=== PATIENT | female | born 1970 | race Caucasian/White ===

== ENCOUNTER 2017-06-08 08:03 | Emergency (ER) | payer MEDICAID ==
[~2017-06-08] VITALS: Ht 152.4 cm; Wt 57.0 kg
[~2017-06-08 08:03] MED LIST: ALBUAER3 INH; ALPR1TAB3 PO; BETH10TA2 PO; CYCL1TAB29 PO; ERGO1CAP30 PO; FLUT50SP EACH NARE; GABA300C5 PO; HYDR-3580 PO; MECL-62 PO; MEDR4PAK PO; SPIRCAP INH; TRIA37.5 PO
[2017-06-08 08:05] VITALS: BP 126/67; PULSE 89; RESP 12; TEMP 98.1; O2SAT 99
--- NOTE | 2017-06-08 08:33 | PD ---
HPI Chief Complaint: Fall Time Seen by Provider: 08:33 Travel History International Travel<30 days: No Contact w/Intl Traveler<30days: No Traveled to known affect area: No History of Present Illness HPI 47-year-old female came to the emergency room with history of trip and fall over her dog yesterday when she landed on her left knee and somehow strained her neck trying to avoid a furniture. Patient says today the pain is worse. She is walking but it hurts to walk. In her neck hurts as well. Last night she took her own Lortab and Flexeril. She has had a cervical fusion and hence she was concerned. She came here to be checked out. Patient did not hit her head and she is not on any blood thinners. [facility] Past Medical History Narrative Medical List of her past medical, surgical, social and family history is reviewed from the nursing Cancer: Yes (CERVICAL) High Cholesterol: Yes ("LOW GOOD CHOLESTEROL") Diminished Hearing: No Hepatitis: Yes (TYPE C) ?: Not Past Surgical History Hysterectomy: Yes Neurologic Surgery: Yes (C-SPINE) Social History Alcohol Use: No (occasional) Tobacco Use: Yes (/2 ) Substance Use: No Allergies-Medications (Allergen,Severity, Reaction): Coded Allergies: Cortisone (Verified Allergy, Severe, PATIENT HAD A REACTION, FELL AND BROKE HER NECK, 06/09/17) Sausage (Verified Allergy, Severe, "the kind on pizza" causes swelling, 06/09/17) Trazodone (Verified Allergy, Severe, THROAT CLOSED, LIPS AND HANDS SWELLED UP, 06/09/17) Tylenol (Verified Allergy, Severe, tylenol in the capsules causes swelling , 06/09/17) Prednisone (Verified Allergy, Unknown, 06/09/17) Sulfa (Verified Adverse Reaction, Mild, stomach upset, 06/09/17) Zithromax (Verified Adverse Reaction, Mild, stomach upset, 06/09/17) Comments List of her allergies reviewed from the nursing. Reported Meds & Prescriptions Reported Meds & Active Scripts Active Flexeril (Cyclobenzaprine HCl) 10 Mg Tab 10 Mg PO TID Bethanechol 10 Mg Tab 10 Mg PO QID Alprazolam 1 Mg Tab 1 Mg PO BID PRN Hydrocodone-Acetaminophen 7.5-325 mg Tab 1 Tab PO Q4H PRN Proair Hfa 8.5 GM Inh (Albuterol Sulfate) 90 Mcg/Act Aer 1 Puff INH Q4H PRN 108 mcg/actuation Gabapentin 300 Mg Cap 300 Mg PO Q6HR Ergocalciferol 50,000 Unit Cap 50,000 Units PO WEEKLY Reported Fluticasone Nasal [place] 50 Mcg/Act Naspr 50 Mcg EACH NARE 50 mcg/spray Narrative Medication List of her home medications reviewed from the nursing note Review of Systems Except as stated in HPI: all other systems reviewed are Neg Physical Exam Narrative GENERAL: Awake, alert, mild distress SKIN: Focused skin assessment warm/dry. Superficial abrasion on her left knee HEAD: Atraumatic. Normocephalic. EYES: Pupils equal and round. No scleral icterus. No injection or drainage. ENT: No nasal bleeding or discharge. Mucous membranes pink and moist. NECK: Trachea midline. No JVD. CARDIOVASCULAR: Regular rate and rhythm. No murmur appreciated. RESPIRATORY: No accessory muscle use. Clear to auscultation. Breath sounds equal bilaterally. GASTROINTESTINAL: Abdomen soft, non-tender, nondistended. Hepatic and splenic margins not palpable. MUSCULOSKELETAL: No obvious deformities. No clubbing. No cyanosis. No edema. The left knee has some prepatellar swelling and tenderness at the abrasion. NEUROLOGICAL: Awake and alert. No obvious cranial nerve deficits. Motor grossly within normal limits. Normal speech. PSYCHIATRIC: Appropriate mood and affect; insight and judgment normal. Data Data Last Documented VS Vital Signs Date Time Temp Pulse Resp B/P Pulse Ox O2 Delivery O2 Flow Rate FiO2 06/08/17 10:47 66 18 125/56 98 06/08/17 08:20 Room Air 06/08/17 08:05 98.1 Orders Knee, Complete (4vws) (06/08/17 ) Spine, Cervical Compl([id number]) (06/08/17 ) Ibuprofen (Motrin) (06/08/17 08:45) MDM Medical Decision Making Medical Screen Exam Complete: Yes Emergency Medical Condition: Yes Medical Record Reviewed: Yes Differential Diagnosis Patellar fracture, effusion, knee contusion, cervical strain, cervical fracture Narrative Course 9:26 AM awaiting for the x-rays to be read. Patient was given Motrin for pain. She will be discharged home if they are negative. Procedures EKG Prior to Arrival: No Diagnosis Primary Impression: Fall Qualified Code: W19.XXXA - Fall, initial encounter Additional Impressions: Knee contusion Qualified Code: S80.02XA - Contusion of left knee, initial encounter Neck strain Qualified Code: S16.1XXA - Neck strain, initial encounter Referrals: Primary Care Physician Departure Forms: Tests/Procedures, Work Release Enter return to work date: Jun 09, 2017 Additional Instructions: Please return to the ER if the condition worsens or any other new concerns. Otherwise follow-up with your primary care in couple days. Apply warm compresses alternating with cold compress on the knee and eventually gravitate worse the one that seems to help most. Take Motrin/Advil/ibuprofen for pain and inflammation. Med/Other Pt SpecificInfo: No Change to Meds Disposition: 01 DISCHARGE HOME Condition: Stable Brandon Perry MD Jun 08, 2017 08:33
[2017-06-08] MEDS ORDERED: IBUPROFEN 600 MG TAB PO ONE (08:45)
--- NOTE | 2017-06-08 09:24 | RADRPT ---
EXAM DATE/TIME: 06/08/2017 08:58 [facility] COMPARISON: No previous studies available for comparison. INDICATIONS : Neck pain, fall. MEDICAL HISTORY : None. SURGICAL HISTORY : Fusion, cervical. ENCOUNTER: Initial ACUITY: 2 days PAIN SCORE: 7/10 LOCATION: Left lateral neck FINDINGS: There is postoperative plate and screw fixation across C5-6 with solid bony fusion. No change from 20 15. Moderate degenerative disc disease in the remainder of the cervical spine. No fracture or spondyl olisthesis and no prevertebral soft tissue swelling. Mild bony foraminal encroachment in the upper ce rvical spine. CONCLUSION: 1. No acute findings. Postoperative fusion at C5-6 as above. Mac Adams MD on June 08, 2017 at 9:19 Board Certified Radiologist. This report was verified electronically.
--- NOTE | 2017-06-08 09:26 | RADRPT ---
EXAM DATE/TIME: 06/08/2017 09:07 [facility] COMPARISON: No previous studies available for comparison. INDICATIONS : Left knee pain, fall. MEDICAL HISTORY : None. SURGICAL HISTORY : None. ENCOUNTER: Initial ACUITY: 2 days PAIN SCORE: 8/10 LOCATION: Left anterior knee FINDINGS: Four view examination of the left knee demonstrates no evidence of fracture or dislocation. Bony min eralization is normal. The articular surfaces are intact. The suprapatellar soft tissues have a nor mal configuration. CONCLUSION: 1. No acute findings. Early changes of osteoarthritis. Mac Adams MD on June 08, 2017 at 9:22 Board Certified Radiologist. This report was verified electronically.
[2017-06-08 10:47] VITALS: BP 125/56
[2017-06-14] MEDS ORDERED: TIZA4CAP3 PO (10:22)
[2017-06-14] MEDS ORDERED: GABA300C5 PO (10:25)
== END 2017-06-08 10:30 | disposition home or self-care (01) ==
LOC: NEPC 08:03
DX: S80.02XA Contusion of left knee, initial encounter (principal); S16.1XXA Strain of muscle, fascia and tendon at neck level, initial encounter; E78.00 Pure hypercholesterolemia, unspecified; B19.20 Unspecified viral hepatitis C without hepatic coma; F17.200 Nicotine dependence, unspecified, uncomplicated; Z79.899 Other long term (current) drug therapy; Z88.5 Allergy status to narcotic agent; Z88.6 Allergy status to analgesic agent; W01.0XXA Fall on same level from slipping, tripping and stumbling without subsequent striking against object, initial encounter
CPT/HCPCS: 72050; 73564; 99284

== ENCOUNTER 2018-03-08 14:36 | Inpatient (IN) | payer MEDICAID ==
[~2018-03-08] VITALS: Ht 152.4 cm; Wt 65.4 kg
[~2018-03-08 14:36] MED LIST changes: +AUGM875T3 PO; -CYCL1TAB29 PO; -ERGO1CAP30 PO; +FLUT1SPR5 EACH NARE; -MECL-62 PO; -MEDR4PAK PO; +META1TAB17 PO; +NICO21DI2 T-DERMAL; -SPIRCAP INH; -TRIA37.5 PO; +VITA500012 PO; +WALKER WHEELS/F1 MIS
[2018-03-08 14:39] VITALS: BP 120/55; PULSE 76; RESP 14; TEMP 97.9; O2SAT 97
--- NOTE | 2018-03-08 14:59 | PD ---
HPI Chief Complaint: Injury Time Seen by Provider: 14:48 Travel History International Travel<30 days: No Contact w/Intl Traveler<30days: No Traveled to known affect area: No History of Present Illness HPI 47-year-old female presents to the emergency department for evaluation of right leg injury that occurred last night. She states she slipped and fell last night and then also had another slip and fall this morning. She states that her right leg went behind her, causing pain to her right lower leg. Patient states she did hit her head, but denies LOC. No vomiting. No altered mental status. She is not on anticoagulants and has no bleeding disorders. Patient states the pain and swelling has worsened. Current pain is 8/10, aching and throbbing without radiation. She states she took 1 of her prescribed Lortab this morning for the pain. Exacerbating factor is movement, ambulation. Alleviating factors keeping the leg still. Mild to moderate severity. She does have a small abrasion to the right dorsal foot. She states her tetanus immunization has been within the past 5 years. PFSH Past Medical History Cancer: Yes (CERVICAL) High Cholesterol: Yes ("LOW GOOD CHOLESTEROL") Diminished Hearing: No Hepatitis: Yes (TYPE C) Past Surgical History Hysterectomy: Yes Neurologic Surgery: Yes (C-SPINE) Social History Alcohol Use: Yes Tobacco Use: Yes (/) Substance Use: No Allergies-Medications (Allergen,Severity, Reaction): Coded Allergies: 136 (Verified Allergy, Severe, "the kind on pizza" causes swelling, 03/08/18 ) acetaminophen (Unverified Allergy, Severe, tylenol in the capsules causes swelling, 03/08/18) cortisone (Unverified Allergy, Severe, PATIENT HAD A REACTION, FELL AND BROKE HER NECK, 03/08/18) trazodone (Unverified Allergy, Severe, THROAT CLOSED, LIPS AND HANDS SWELLED UP, 03/08/18) prednisone (Unverified Allergy, Unknown, 03/08/18) Sulfa (Sulfonamide Antibiotics) (Unverified Adverse Reaction, Mild, stomach upset, 03/08/18) azithromycin (Unverified Adverse Reaction, Mild, stomach upset, 03/08/18) Reported Meds & Prescriptions Reported Meds & Active Scripts Active Alprazolam 1 Mg Tab 1 Mg PO BID PRN Please do not fill before 11/02/17 Hydrocodone-Acetaminophen 7.5-325 mg Tab 1 Tab PO Q4H PRN Please do not fill before 11/29/17 Flonase Nasal [place] (Fluticasone Nasal [place]) 50 Mcg/Act [place] 50 Mcg EACH NARE BID Augmentin (Amoxicillin-Clavulanate) 875-125 Mg Tab 1 Tab PO BID Proair Hfa 8.5 GM Inh (Albuterol Sulfate) 90 Mcg/Act Aer 1 Puff INH Q4H PRN 108 mcg/actuation Nicotine Patch (Nicotine) 21 Mg/24 Hr Patch 21 Mg T-DERMAL DAILY Metaxalone 400 Mg Tab 400 Mg PO TID Gabapentin 300 Mg Cap 600 Mg PO Q6HR Ergocalciferol 50,000 Unit Cap 50,000 Units PO WEEKLY Walker with Front Wheels (Device) 1 Mis Mis Ea .ROUTE DIRECTED Bethanechol 10 Mg Tab 10 Mg PO QID Reported Fluticasone Nasal [place] 50 Mcg/Act Naspr 50 Mcg EACH NARE 50 mcg/spray Review of Systems Except as stated in HPI: all other systems reviewed are Neg Physical Exam Narrative GENERAL: Well-nourished, well-developed female patient, ambulatory. Afebrile. SKIN: Focused skin assessment warm/dry. Patient has a small abrasion to the right dorsal foot. HEAD: Normocephalic. Atraumatic. ENT: Mucosa pink and moist. No erythema or exudates. No uvular edema. No uvular , palatal, or tonsillar deviation. Airway patent. Nasal turbinates appear normal without nasal blood, purulent drainage or septal hematoma. Bilateral tympanic membranes clear without erythema or perforation. EYES: No scleral icterus. No injection or drainage. PERRLA. NECK: Supple, trachea midline. No JVD or lymphadenopathy. CARDIOVASCULAR: Regular rate and rhythm without murmurs, gallops, or rubs. Right pedal pulse is 2+. RESPIRATORY: Breath sounds equal bilaterally. No accessory muscle use. Lung sounds are clear to auscultation. GASTROINTESTINAL: Abdomen soft, non-tender, nondistended. MUSCULOSKELETAL: No cyanosis, or edema. Patient has tenderness to palpation over the right lower anterior knee, right tibia/fibula, right ankle, right dorsal foot. BACK: Nontender without obvious deformity. No CVA tenderness. Data Data Last Documented VS Vital Signs Date Time Temp Pulse Resp B/P (MAP) Pulse Ox O2 Delivery O2 Flow Rate FiO2 03/08/18 14:39 97.9 76 14 120/55 (76) 97 Orders Orders Tibia/Fibula (Ap/Lat) (03/08/18 ) Ankle, Complete (Weu7esv) (03/08/18 ) Foot, Complete (Kcj6vor) (03/08/18 ) Complete Blood Count With Diff (03/08/18 17:01) Iv Access Insert/Monitor (03/08/18 17:01) Basic Metabolic Panel (Bmp) (03/08/18 17:01) Act Partial Throm Time (Ptt) (03/08/18 17:01) Prothrombin Time / Inr (Pt) (03/08/18 17:01) Chest, Single Ap (03/08/18 ) [employer] Request For Service (03/08/18 17:01) Acetamin-Hydrocod 325-7.5 Mg (Lydia 7.5 (03/08/18 17:15) Splint Or Brace Apply/Monitor (03/08/18 17:04) Admit Order (Ed Use Only) (03/08/18 18:04) Labs Laboratory Tests Test 03/08/18 17:30 [facility] Medical Decision Making Medical Screen Exam Complete: Yes Emergency Medical Condition: Yes Medical Record Reviewed: Yes Interpretation(s) x-ray of the right foot - CONCLUSION: 1. Fracture of the medial malleolus. Please refer to ankle x-ray report for further description. 2. Subtle lucency and asymmetric appearance to the fifth digit proximal phalanx and the proximal metaphysis. I feel is unlikely to represent a fracture given the appearance but suggest correlating for pain at this site. x-ray right ankle - CONCLUSION: 1. There are minimally displaced fractures of the medial and posterior malleolus of the distal tibia. 2. Medial lateral ankle soft tissue swelling. x-ray of the right tibia/fibula - CONCLUSION: Mildly comminuted and displaced spiral fracture of the proximal fibula with minimally displaced fracture of the medial malleolus. This is a Maisonneuve type fracture without any widening of the ankle mortise appreciated. This suggests injury to the interosseous membrane as well. Differential Diagnosis Fracture versus sprain versus contusion versus dislocation Narrative Course 47-year-old female presents to the emergency department for evaluation of right lower leg pain after a slip and fall. She did hit her head. According to [place] CT head rules, imaging is not indicated at this time. X-ray of the right tibia/fibula, ankle, foot are ordered and pending. X-ray of the right tibia/fibula shows mildly comminuted and displaced spiral fracture of the proximal fibula with minimally displaced fracture of the medial malleolus. This is a Maisonneuve type fracture without any widening of the ankle mortise appreciated. This suggests injury to the interosseous membrane as well.. X-ray of the right ankle shows there are minimally displaced fractures of the medial and posterior malleolus of the distal tibia; Medial lateral ankle soft tissue swelling. X-ray of the right foot shows Fracture of the medial malleolus. Please refer to ankle x-ray report for further description; Subtle lucency and asymmetric appearance to the fifth digit proximal phalanx and the proximal metaphysis. I feel is unlikely to represent a fracture given the appearance but suggest correlating for pain at this site. On exam patient has no tenderness to palpation over this area. 1607 - Orthopedic surgeon, Dr. Love, is paged for consultation. I spoke with Dr. Kurtz, who recommends admission to medicine, consult Dr. Aguilar for surgery tomorrow. Patient is to be n.p.o. after midnight. He would like a cooling unit to be done with the splint. I discussed this with the patient, who initially declined admission. However, after she was able to reschedule some appointments, she agrees to be admitted. Chest x-ray, CBC, BMP, PTT, PT/INR ordered and pending. Medicine is paged for admission. Dr. Lane accepted admission. Diagnosis Primary Impression: Fracture of right proximal fibula Qualified Codes: S82.831A - Other fracture of upper and lower end of right fibula, initial encounter for closed fracture Additional Impression: Right malleolar fracture Qualified Codes: S82.891A - Other fracture of right lower leg, initial encounter for closed fracture Admitting Information Admitting Physician Requests: Gia Henry March 08, 2018 14:59
--- NOTE | 2018-03-08 15:49 | RADRPT ---
EXAM DATE/TIME: 03/08/2018 15:28 [facility] COMPARISON: TIBIA/FIBULA RIGHT (AP/LAT), March 08, 2018, 15:32. ANKLE RIGHT COMPLETE ([id number]), March 08, 2018, 15:3 0. INDICATIONS : Tripped and fell last night. Pain in ankle region radiating up leg. MEDICAL HISTORY : None. SURGICAL HISTORY : None. ENCOUNTER: Initial ACUITY: 1 day PAIN SCORE: 9/10 LOCATION: Right Foot FINDINGS: 3 views of the right foot demonstrate a fracture through the medial malleolus which will be further d escribed on the other examinations. The bones of the hindfoot and midfoot appear intact. The Lisfranc joint appears intact. There is a subtle lucency at the fifth digit proximal phalanx in the proximal metaphysis. However, definite fracture is not appreciated. There is soft tissue swelling around the a nkle. No radiopaque foreign body is identified. CONCLUSION: 1. Fracture of the medial malleolus. Please refer to ankle x-ray report for further description. 2. Subtle lucency and asymmetric appearance to the fifth digit proximal phalanx and the proximal meta physis. I feel is unlikely to represent a fracture given the appearance but suggest correlating for p ain at this site. Demian Almaguer MD on March 08, 2018 at 15:43 Board Certified Radiologist. This report was verified electronically.
--- NOTE | 2018-03-08 15:53 | RADRPT ---
EXAM DATE/TIME: 03/08/2018 15:30 [facility] COMPARISON: TIBIA/FIBULA RIGHT (AP/LAT), March 08, 2018, 15:32. INDICATIONS : Tripped and fell last night. Pain in ankle region radiating up leg. MEDICAL HISTORY : None. SURGICAL HISTORY : None. ENCOUNTER: Initial ACUITY: 1 day PAIN SCORE: 9/10 LOCATION: Right Ankle FINDINGS: 3 views of the right ankle demonstrate a minimally displaced fracture of the medial malleolus. Ankle mortise is intact. There is also a fracture through the posterior malleolus. Medial and lateral ankle soft tissue swelling is present. There is no radiopaque foreign body. CONCLUSION: 1. There are minimally displaced fractures of the medial and posterior malleolus of the distal tibia. 2. Medial lateral ankle soft tissue swelling. Demian Almaguer MD on March 08, 2018 at 15:49 Board Certified Radiologist. This report was verified electronically.
--- NOTE | 2018-03-08 15:56 | RADRPT ---
EXAM DATE/TIME: 03/08/2018 15:32 [facility] COMPARISON: No previous studies available for comparison. INDICATIONS : Tripped and fell last night. Pain in ankle region radiating up leg. MEDICAL HISTORY : None. SURGICAL HISTORY : None. ENCOUNTER: Initial ACUITY: 1 day PAIN SCORE: 9/10 LOCATION: Right Tib/Fib FINDINGS: 2 views of the right leg demonstrate a minimally displaced spiral fracture of the proximal fibular me tadiaphysis with displacement of the distal fragment by 3 mm. Fracture is mildly comminuted. There is also a transverse fracture through the medial malleolus which is minimally displaced. The ankle mort ise does not appear widened. There is medial and lateral ankle soft tissue swelling. No radiopaque fo reign body is present. CONCLUSION: Mildly comminuted and displaced spiral fracture of the proximal fibula with minimally displaced fract ure of the medial malleolus. This is a Maisonneuve type fracture without any widening of the ankle mo rtise appreciated. This suggests injury to the interosseous membrane as well. Demian Almaguer MD on March 08, 2018 at 15:50 Board Certified Radiologist. This report was verified electronically.
[2018-03-08] MEDS ORDERED: ACETAMINOPHEN/HYDROcodone 325 MG/7.5 MG TAB PO ONE (17:15)
--- NOTE | 2018-03-08 17:23 | RADRPT ---
EXAM DATE/TIME: 03/08/2018 17:11 [facility] COMPARISON: No previous studies available for comparison. INDICATIONS : Evaluate for pneumonia, pneumothorax, or communicable disease. Pre op for surgery. MEDICAL HISTORY : None. SURGICAL HISTORY : None. ENCOUNTER: Initial ACUITY: 1 day PAIN SCORE: 0/10 LOCATION: Bilateral chest FINDINGS: A single view of the chest demonstrates the lungs to be symmetrically aerated without evidence of mas s, infiltrate or effusion. The cardiomediastinal contours are unremarkable. Osseous structures are intact. CONCLUSION: The lungs are clear. Omkar Lunsford MD on March 08, 2018 at 17:21 Board Certified Radiologist. This report was verified electronically.
[2018-03-08 18:09] LABS: PROTHROMBIN TIME - PATIENT 10.4 SEC (9.8-11.6)
[2018-03-08 18:14] LABS: BASOPHIL % 0.2 % (0.0-2.0); EOSINOPHIL # 0.3 TH/MM3 (0-0.4); EOSINOPHIL % 1.8 % (0.0-4.0); HEMATOCRIT 41.2 % (35.0-46.0); HEMOGLOBIN 14.5 GM/DL (11.6-15.3); LYMPH % 22.7 % (9.0-44.0); LYMPHOCYTE # 3.6 TH/MM3 (1.0-4.8); MEAN CELL VOLUME 91.2 FL (80.0-100.0); MEAN CORPUSCULAR HEMOGLOBIN 32.1 PG (27.0-34.0); MEAN CORPUSCULAR HGB CONC 35.2 % (32.0-36.0); MEAN PLATELET VOLUME 8.5 FL (7.0-11.0); MONO % 6.7 % (0.0-8.0); MONOCYTE # 1.1 TH/MM3 (0-0.9); NEUT % 68.6 % (16.0-70.0); PLATELET COUNT 275 TH/MM3 (150-450); RED BLOOD COUNT 4.52 MIL/MM3 (4.00-5.30); RED CELL DISTRIBUTION WIDTH 12.8 % (11.6-17.2)
[2018-03-08 18:25] LABS: BICARBONATE 26.6 MEQ/L (21.0-32.0); CREATININE 0.88 MG/DL (0.50-1.00)
[2018-03-08] MEDS ORDERED: LACTULOSE SYRUP 20 GM/30 ML CUP PO PRN (18:45)
[2018-03-08] MEDS ORDERED: NALOXONE HCL 0.4 MG/ML AMP IV PUSH PRN (18:45)
[2018-03-08] MEDS ORDERED: SODIUM CHLORIDE 0.9% FLUSH 10 ML FLUSH IV FLUSH PRN (18:45)
[2018-03-08] MEDS ORDERED: SENNOSIDES 8.6 MG TAB PO PRN (18:45)
[2018-03-08] MEDS ORDERED: MAGNESIUM HYDROXIDE SUSP 30 ML CUP PO PRN (18:45)
[2018-03-08] MEDS ORDERED: ONDANSETRON HCL 4 MG/2 ML VIAL IVP PRN (18:45)
[2018-03-08] MEDS ORDERED: BISACODYL 10 MG SUPP RECTAL PRN (18:45)
--- NOTE | 2018-03-08 18:59 | HHI.HP ---
[facility] Suhail Olguin MD Admission Diagnosis Right proximal fibula fracture, right distal tibia fracture Diagnoses: Chief Complaint: Fall, righ leg and hand pain Travel History International Travel<30 Days: No Contact w/Intl Traveler <30 Da: No Traveled to Known Affected Are: No History of Present Illness PAtient states slipped and fell. Review of Systems As per HPI, other systems reviewe by me and negative Past Family Social History Past Medical History 1. Cervical cancer. 2. Hyperlipidemia. 3. Hepatitis C. Past Surgical History 1. Hysterectomy. 2. Surgery of the cervical spine. Reported Medications Reported Meds & Active Scripts Active Alprazolam 1 Mg Tab 1 Mg PO BID PRN Please do not fill before 11/02/17 Hydrocodone-Acetaminophen 7.5-325 mg Tab 1 Tab PO Q4H PRN Please do not fill before 11/29/17 Flonase Nasal [place] (Fluticasone Nasal [place]) 50 Mcg/Act [place] 50 Mcg EACH NARE BID Proair Hfa 8.5 GM Inh (Albuterol Sulfate) 90 Mcg/Act Aer 1 Puff INH Q4H PRN 108 mcg/actuation Nicotine Patch (Nicotine) 21 Mg/24 Hr Patch 21 Mg T-DERMAL DAILY Metaxalone 400 Mg Tab 400 Mg PO TID Gabapentin 300 Mg Cap 600 Mg PO Q6HR Ergocalciferol 50,000 Unit Cap 50,000 Units PO WEEKLY Bethanechol 10 Mg Tab 10 Mg PO QID Reported Fluticasone Nasal [place] 50 Mcg/Act Naspr 50 Mcg EACH NARE 50 mcg/spray Allergies: Coded Allergies: 136 (Verified Allergy, Severe, "the kind on pizza" causes swelling, 03/08/18 ) acetaminophen (Unverified Allergy, Severe, tylenol in the capsules causes swelling, 03/08/18) cortisone (Unverified Allergy, Severe, PATIENT HAD A REACTION, FELL AND BROKE HER NECK, 03/08/18) trazodone (Unverified Allergy, Severe, THROAT CLOSED, LIPS AND HANDS SWELLED UP, 03/08/18) prednisone (Unverified Allergy, Unknown, 03/08/18) Sulfa (Sulfonamide Antibiotics) (Unverified Adverse Reaction, Mild, stomach upset, 03/08/18) azithromycin (Unverified Adverse Reaction, Mild, stomach upset, 03/08/18) Active Ordered Medications Current Medications Medications (Trade) Dose Ordered Sig/Vitor Route Start Time Stop Time Status Last Admin (NS Flush) 2 ml UNSCH PRN IV FLUSH 03/08/18 18:45 (NS Flush) 2 ml BID IV FLUSH 03/08/18 21:00 03/08/18 21:35 (Zofran Inj) 4 mg Q6H PRN IVP 03/08/18 18:45 (Heparin Inj) 5,000 units Q8H SQ 03/08/18 18:45 03/08/18 19:20 (Narcan Inj) 0.4 mg UNSCH PRN IV PUSH 03/08/18 18:45 (Rosita-Colace) 1 tab BID PO 03/08/18 21:00 03/08/18 21:31 (Milk Of Magnesia Liq) 30 ml Q12H PRN PO 03/08/18 18:45 (Senokot) 17.2 mg Q12H PRN PO 03/08/18 18:45 (Dulcolax Supp) 10 mg DAILY PRN RECTAL 03/08/18 18:45 (Lactulose Liq) 30 ml DAILY PRN PO 03/08/18 18:45 (Proair Hfa Inh) 1 puff Q4H PRN INH 03/08/18 19:00 (Xanax) 1 mg BID PRN PO 03/08/18 19:00 03/08/18 22:20 (Urecholine) 10 mg QID PO 03/08/18 21:00 03/08/18 21:31 (Neurontin) 600 mg Q6HR PO 03/09/18 00:00 03/09/18 00:05 (Skelaxin) 400 mg TID PO 03/09/18 09:00 (Habitrol 21 Mg Patch.24 Hr) 21 patch DAILY T-DERMAL 03/09/18 09:00 (Flonase [place] Spr) 50 spray BID EACH NARE 03/08/18 21:00 03/08/18 21:31 (Roxicodone) 5 mg Q4H PRN PO 03/08/18 19:00 (Roxicodone) 10 mg Q4H PRN PO 03/08/18 19:00 03/08/18 22:15 Miscellaneous Information 1 HS T-DERMAL 03/08/18 21:00 Social History Patient smokes half a pack per day. The patient uses alcohol. Denies illicit drug use. Physical Exam Vital Signs Vital Signs Date Time Temp Pulse Resp B/P (MAP) Pulse Ox O2 Delivery O2 Flow Rate FiO2 03/08/18 14:39 97.9 76 14 120/55 (76) 97 Physical Exam GENERAL: This is a well-nourished, well-developed patient, in no apparent distress. SKIN: No rashes, ecchymoses or lesions. Cool and dry. HEAD: Atraumatic. Normocephalic. No temporal or scalp tenderness. EYES: Pupils equal round and reactive. Extraocular motions intact. No scleral icterus. No injection or drainage. ENT: Nose without bleeding, purulent drainage or septal hematoma. Throat without erythema, tonsillar hypertrophy or exudate. Uvula midline. Airway patent. NECK: Trachea midline. No JVD or lymphadenopathy. Supple, nontender, no meningeal signs. CARDIOVASCULAR: Regular rate and rhythm without murmurs, gallops, or rubs. RESPIRATORY: Clear to auscultation. Breath sounds equal bilaterally. No wheezes , rales, or rhonchi. GASTROINTESTINAL: Abdomen soft, non-tender, nondistended. No hepato-splenomegaly , or palpable masses. No guarding. MUSCULOSKELETAL: Right leg on a cast, right wrist on splint. Good capillary refill in both upper and lower extremities. NEUROLOGICAL: Awake and alert. Cranial nerves II through XII intact. Motor and sensory grossly within normal limits. Five out of 5 muscle strength in all muscle groups. Normal speech. Laboratory Laboratory Tests Test 03/08/18 17:30 White Blood Count 16.0 Red Blood Count 4.52 Hemoglobin 14.5 Hematocrit 41.2 Mean Corpuscular Volume 91.2 Mean Corpuscular Hemoglobin 32.1 Mean Corpuscular Hemoglobin Concent 35.2 Red Cell Distribution Width 12.8 Platelet Count 275 Mean Platelet Volume 8.5 Neutrophils (%) (Auto) 68.6 Lymphocytes (%) (Auto) 22.7 Monocytes (%) (Auto) 6.7 Eosinophils (%) (Auto) 1.8 Basophils (%) (Auto) 0.2 Neutrophils # (Auto) 11.0 Lymphocytes # (Auto) 3.6 Monocytes # (Auto) 1.1 Eosinophils # (Auto) 0.3 Basophils # (Auto) 0.0 CBC Comment AUTO DIFF Prothrombin Time 10.4 Prothromb Time International Ratio 1.0 Activated Partial Thromboplast Time 27.2 Blood Urea Nitrogen 11 Creatinine 0.88 Random Glucose 109 Calcium Level 9.0 Sodium Level 138 Potassium Level 4.2 Chloride Level 105 Carbon Dioxide Level 26.6 Anion Gap 6 Estimat Glomerular Filtration Rate 69 Result Diagram: 03/08/18 1730 03/08/18 1730 Imaging Last Impressions Tibia/Fibula X-Ray 03/08/18 0000 Signed Impressions: Service Date/Time: March 15:32 - CONCLUSION: Mildly comminuted and displaced spiral fracture of the proximal fibula with minimally displaced fracture of the medial malleolus. This is a Maisonneuve type fracture without any widening of the ankle mortise appreciated. This suggests injury to the interosseous membrane as well. Demian Almaguer MD Foot X-Ray 03/08/18 0000 Signed Impressions: Service Date/Time: March 15:28 - CONCLUSION: 1. Fracture of the medial malleolus. Please refer to ankle x-ray report for further description. 2. Subtle lucency and asymmetric appearance to the fifth digit proximal phalanx and the proximal metaphysis. I feel is unlikely to represent a fracture given the appearance but suggest correlating for pain at this site. Demian Almaguer MD Chest X-Ray 03/08/18 0000 Signed Impressions: Service Date/Time: March 17:11 - CONCLUSION: The lungs are clear. Omkar Lunsford MD Ankle X-Ray 03/08/18 0000 Signed Impressions: Service Date/Time: March 15:30 - CONCLUSION: 1. There are minimally displaced fractures of the medial and posterior malleolus of the distal tibia. 2. Medial lateral ankle soft tissue swelling. MD Matthew Gayi VTE Risk Assessment Caprini VTE Risk Assessment: Mod/High Risk (score >= 2) Caprini Risk Assessment Model Point Value = 1 Point Value = 2 Point Value = 3 Point Value = 5 Age 41-60 Minor surgery BMI > 25 kg/m2 Swollen legs Varicose veins or History of unexplained or recurrent spontaneous Oral contraceptives or hormone replacement Sepsis (< 1 month) Serious lung disease, including pneumonia (< 1 month) Abnormal pulmonary function Acute myocardial infarction Congestive heart failure (< 1 month) History of inflammatory bowel disease Medical patient at bed rest Age 61-74 Arthroscopic surgery Major open surgery (> 45 min) Laparoscopic surgery (> 45 min) Malignancy Confined to bed (> 72 hours) Immobilizing plaster cast Central venous access Age >= 75 History of VTE Family history of VTE Factor V Leiden Prothrombin [id number] Lupus anticoagulant Anticardiolipin antibodies Elevated serum homocysteine Heparin-induced thrombocytopenia Other congenital or acquired thrombophilia Stroke (< 1 month) Elective arthroplasty Hip, pelvis, or leg fracture Acute spinal cord injury (< 1 month) Prophylaxis Regimen Total Risk Factor Score Risk Level Prophylaxis Regimen 0-1 Low Early ambulation 2 Moderate Order ONE of the following: *Sequential Compression Device (SCD) *Heparin 5000 units SQ BID 3-4 Higher Order ONE of the following medications: *Heparin 5000 units SQ TID *Enoxaparin/Lovenox 40 mg SQ daily (WT < 150 kg, CrCl > 30 mL/min) *Enoxaparin/Lovenox 30 mg SQ daily (WT < 150 kg, CrCl > 10-29 mL/min) *Enoxaparin/Lovenox 30 mg SQ BID (WT < 150 kg, CrCl > 30 mL/min) AND/OR *Sequential Compression Device (SCD) 5 or more Highest Order ONE of the following medications: *Heparin 5000 units SQ TID (Preferred with Epidurals) *Enoxaparin/Lovenox 40 mg SQ daily (WT < 150 kg, CrCl > 30 mL/min) *Enoxaparin/Lovenox 30 mg SQ daily (WT < 150 kg, CrCl > 10-29 mL/min) *Enoxaparin/Lovenox 30 mg SQ BID (WT < 150 kg, CrCl > 30 mL/min) AND *Sequential Compression Device (SCD) Assessment and Plan Problem List: (1) Fracture of right proximal fibula ICD Code: S82.831A - Other fracture of upper and lower end of right fibula, initial encounter for closed fracture Status: Acute (2) Right malleolar fracture ICD Code: S82.891A - Other fracture of right lower leg, initial encounter for closed fracture Status: Acute (3) Hepatitis C ICD Code: B19.20 - Unspecified viral hepatitis C without hepatic coma Status: Chronic Permanent Comment: 01/20/10. In one year, patient's Viral Load has increased X 5. Last Edited By: Megan Soria on Apr 25, 2013 10:51 Assessment and Plan Admit to medical floor NPO at midnight Pain contro with oxycodone. orthopedic surgery consult - Dr Ivan shrestha hparin SQ for DVt prophylaxis Code Status Full Discussed Condition With Ed physician, patient Physician Certification 2 Midnight Certification Type: Admission for Inpatient Services Order for Inpatient Services The services are ordered in accordance with Medicare regulations or non- Medicare payer requirements, as applicable. In the case of services not specified as inpatient-only, they are appropriately provided as inpatient services in accordance with the 2-midnight benchmark. Estimated LOS (days): 2 days is the estimated time the patient will need to remain in the hospital, assuming treatment plan goals are met and no additional complications. Post-Hospital Plan: SNF Problem Qualifiers (1) Fracture of right proximal fibula: Qualified Codes: S82.831A - Other fracture of upper and lower end of right fibula, initial encounter for closed fracture (2) Right malleolar fracture: Qualified Codes: S82.891A - Other fracture of right lower leg, initial encounter for closed fracture Chinedu Peguero MD March 08, 2018 18:59
[2018-03-08] MEDS ORDERED: ALBUTEROL SULFATE 90 MCG/ACT HFA 8 GM INHALER INH PRN (19:00)
[2018-03-08] MEDS ORDERED: ALPRAZolam 1 MG TAB PO PRN (19:00)
[2018-03-08] MEDS: HEPARIN SODIUM - SQ 10,000 UNITS/ML VIAL SQ SCH (19:20)
[2018-03-08 19:21] VITALS: BP 149/67; PULSE 69; RESP 16; O2SAT 97
[2018-03-08 20:30] VITALS: BP 111/57; PULSE 71; RESP 16; TEMP 98.1; O2SAT 98
[2018-03-08] MEDS ORDERED: REMOVE OLD NICODERM (NICOTINE) PATCH T-DERMAL SCH (21:00)
[2018-03-08] MEDS: DOCUSATE SODIUM 50 MG/SENNA 8.6 MG TAB PO SCH (21:31)
[2018-03-08] MEDS: FLUTICASONE PROPIONATE 50 MCG/ACT 16 GM NASAL SPRAY EACH NARE SCH (21:31)
[2018-03-08] MEDS: BETHANECHOL CHL 10 MG TAB PO SCH (21:31)
[2018-03-08] MEDS: SODIUM CHLORIDE 0.9% FLUSH 10 ML FLUSH IV FLUSH SCH (21:35)
[2018-03-09 00:05] VITALS: BP 142/65; PULSE 74; RESP 17; TEMP 97.8; O2SAT 98
[2018-03-09] MEDS: GABAPENTIN 300 MG CAP PO SCH ×3 (00:05→12:48)
[2018-03-09] MEDS: HEPARIN SODIUM - SQ 10,000 UNITS/ML VIAL SQ SCH ×2 (02:45→10:45)
[2018-03-09] MEDS ORDERED: POVIDONE IODINE 5% (ANTISEPSIS KIT) 4 APPLICATIONS EACH NARE PRN (04:30)
[2018-03-09] MEDS ORDERED: CHLORHEXIDINE GLUCONATE 2 % 1 PACK (2 CLOTHS) TOPICAL PRN (04:30)
[2018-03-09] MEDS ORDERED: SODIUM CHLORID 0.9% 500 ML IV PRN (04:30)
[2018-03-09] MEDS ORDERED: LACTATED RINGER'S 1000 ML IV PRN (04:30)
[2018-03-09 04:55] VITALS: BP 103/57; PULSE 62; RESP 17; TEMP 99; O2SAT 94
[2018-03-09 06:57] LABS: AUTOMATED NEUTROPHIL # 3.6 TH/MM3 (1.8-7.7); BASOPHIL % 0.5 % (0.0-2.0); EOSINOPHIL # 0.3 TH/MM3 (0-0.4); EOSINOPHIL % 3.9 % (0.0-4.0); HEMATOCRIT 36.8 % (35.0-46.0); LYMPH % 42.2 % (9.0-44.0); LYMPHOCYTE # 3.4 TH/MM3 (1.0-4.8); MEAN CELL VOLUME 91.2 FL (80.0-100.0); MEAN CORPUSCULAR HEMOGLOBIN 32.3 PG (27.0-34.0); MEAN CORPUSCULAR HGB CONC 35.5 % (32.0-36.0); MEAN PLATELET VOLUME 8.3 FL (7.0-11.0); MONO % 8.8 % (0.0-8.0); MONOCYTE # 0.7 TH/MM3 (0-0.9); NEUT % 44.6 % (16.0-70.0); PLATELET COUNT 204 TH/MM3 (150-450); RED BLOOD COUNT 4.04 MIL/MM3 (4.00-5.30); RED CELL DISTRIBUTION WIDTH 12.7 % (11.6-17.2); WHITE BLOOD COUNT 8.1 TH/MM3 (4.0-11.0)
[2018-03-09 07:16] LABS: AST (GOT) 23 U/L (15-37); BICARBONATE 28.2 MEQ/L (21.0-32.0); BLOOD UREA NITROGEN 12 MG/DL (7-18); CALCIUM 8.5 MG/DL (8.5-10.1); CHLORIDE 104 MEQ/L (98-107); CREATININE 0.77 MG/DL (0.50-1.00); GLOMERULAR FILTRATION RATE 80 ML/MIN (>89); GLUCOSE,RANDOM 88 MG/DL (74-106); SODIUM (NA) 139 MEQ/L (136-145)
[2018-03-09 07:18] LABS: ALT (GPT) 32 U/L (10-53)
[2018-03-09 07:20] LABS: ALKALINE PHOSPHATASE 59 U/L (45-117); TOTAL BILIRUBIN ADULT 0.8 MG/DL (0.2-1.0); TOTAL PROTEIN 6.5 GM/DL (6.4-8.2)
[2018-03-09 08:00] VITALS: BP 134/58; PULSE 69; RESP 18; TEMP 98.8; O2SAT 95
[2018-03-09] MEDS ORDERED: NICOTINE 21 MG/24 HR PATCH T-DERMAL SCH (09:00)
[2018-03-09] MEDS: METAXALONE 800 MG TAB PO SCH ×2 (09:00→12:48)
[2018-03-09] MEDS: SODIUM CHLORIDE 0.9% FLUSH 10 ML FLUSH IV FLUSH SCH (09:00)
[2018-03-09] MEDS: FLUTICASONE PROPIONATE 50 MCG/ACT 16 GM NASAL SPRAY EACH NARE SCH (09:00)
[2018-03-09] MEDS: DOCUSATE SODIUM 50 MG/SENNA 8.6 MG TAB PO SCH (09:00)
[2018-03-09] MEDS: BETHANECHOL CHL 10 MG TAB PO SCH ×2 (09:00→12:48)
--- NOTE | 2018-03-09 09:00 | MB ---
cc: Juanito Aguilar MD DATE: 03/09/2018 REASON FOR CONSULTATION: Right ankle fracture. CONSULTING PHYSICIAN: Dr. Domingo Ely. HISTORY OF PRESENT ILLNESS: Claudia is a 47-year-old female who presented to the emergency room after having a right ankle injury. She fell the night prior to presentation. She twisted her right ankle. She had immediate right ankle pain. She has difficulty ambulating. She presented to the Emergency Room where x-rays revealed a right proximal fibula fracture and a right medial malleolus fracture. She is currently awake and alert on the orthopedic floor. Pain is improved with rest and is worse with motion. She denies dizziness, syncope or loss of consciousness. She describes a mechanical fall. PAST MEDICAL HISTORY: Cervical cancer and hepatitis. PAST SURGICAL HISTORY: Hysterectomy and cervical fusion. ALLERGIES: 1. CORTISONE. 2. TRAZODONE. 3. PREDNISONE. 4. SULFA. 5. AZITHROMYCIN. MEDICATIONS: 1. Alprazolam. 2. [place]. 3. Augmentin. 4. ProAir. 5. Nicotine. 6. Gabapentin. 7. Nasal spray. SOCIAL HISTORY: The patient smokes 1/2 pack of cigarettes a day. She uses alcohol occasionally. She denies drug use. FAMILY HISTORY: Noncontributory. She denies familial medical problems. REVIEW OF SYSTEMS: The patient denies headache, visual changes, neck pain, chest pain, shortness of breath, abdominal pain, nausea, vomiting, recent weight loss, fevers or chills or numbness or tingling of the extremities. She complains of right ankle pain. She also complains of mild swelling. Pain is worse with movement. LABORATORY DATA: The patient has a white blood cell count of 8.1, hematocrit of 36.8, platelet count of 204. INR 1.0. BUN 12, creatinine is 0.77. PHYSICAL EXAMINATION: GENERAL: The patient is a well-developed, well-nourished, 47-year-old female. She is awake and alert. She is alert and oriented x 3. She is mildly overweight. VITAL SIGNS: Temperature 99.0, pulse of 62, respirations 17, blood pressure 103/57, O2 saturation 94% on room air. HEENT: Head: The patient is normocephalic. Pupils are equal. NECK: Soft and nontender. The trachea is in the midline. ABDOMEN: Soft, nontender, and nondistended. EXTREMITIES: Examination of bilateral upper extremities reveals no pain with shoulder, elbow or wrist motion. She has intact sensation in all fingers. She has good cap refill in all fingers. Skin is intact. Radial pulses are palpable. Examination of left leg reveals no pain with hip, knee or ankle motion. Skin is intact. Dorsalis pedis pulse is palpable. Sensation is intact. Examination of right leg reveals no pain with hip or knee motion. She is tender to palpation over the proximal fibula. She is tender over the medial ankle. She has mild swelling of the ankle. Skin is intact. Dorsalis pedis pulse is palpable. IMPRESSION: 1. Smoking dependence. 2. Right proximal fibula fracture. 3. Right medial ankle fracture. PLAN: Treatment options were discussed with the patient. At this point, I would recommend surgical stabilization of the ankle. I would recommend open reduction and fixation of the medial ankle. The patient may also needs stabilization of the ankle syndesmosis. Risks of surgery included bleeding, infection, injuries to arteries, nerves and blood vessels; nonunion, malunion, painful hardware as well as medical complications associated with anesthesia. All questions were answered. I will plan on surgery today. I also will start the patient on calcium with vitamin D supplementation to help fracture heal. Discussed with her the need to stop smoking. Smoking will delay and hinder her bone healing. All questions were answered. MD JENNIFER Simon/BRITTA , 08:30 AM , 08:58 AM
--- NOTE | 2018-03-09 09:43 | PD.ORT.PN ---
Subjective Subjective Remarks . Fell onto right lower extremity. She had significant pain and came to the emergency room for assessment. X-rays show fracture to medial malleolus posterior tibia and fibula Objective Vitals Vital Signs Date Time Temp Pulse Resp B/P (MAP) Pulse Ox O2 Delivery O2 Flow Rate FiO2 03/09/18 04:55 99.0 62 17 103/57 (72) 94 03/09/18 00:05 97.8 74 17 142/65 (90) 98 03/08/18 20:30 98.1 71 16 111/57 (75) 98 03/08/18 19:50 03/08/18 19:21 69 16 149/67 (94) 97 03/08/18 14:39 97.9 76 14 120/55 (76) 97 I/O 03/08/18 03/08/18 03/08/18 03/09/18 03/09/18 03/09/18 07:00 15:00 23:00 07:00 15:00 23:00 Intake Total 360 ml Balance 360 ml Intake Oral 360 ml # Voids 3 # Bowel Movements 0 Result Diagram: 03/09/18 0511 03/09/18 0511 Other Results Laboratory Tests Test 03/08/18 17:30 Prothromb Time International Ratio 1.0 RATIO Prothrombin Time 10.4 SEC (9.8-11.6) Objective Remarks Bilateral upper extremities: Full range of motion neurovascularly intact Left lower extremity: Full range of motion and neurovascularly intact Right lower extremity: No pain with hip or knee range of motion. She has tenderness on the proximal fibula. Splint is in place splint is taken down and has tenderness over syndesmosis and medial malleolus. Minimal tenderness over distal fibula intact sensation distally in all toes. Active movement of all toes Assessment & Plan Assessment and Plan Right trimalleolar ankle fracture with syndesmosis injury N.p.o. Surgery this morning for fixation: Open reduction internal fixation of right ankle with possible syndesmosis reduction Postoperatively should be nonweightbearing on the right lower extremity and maintain splint Follow-up appointment Dr. Aguilar or DONE[facility] in 2 weeks Leonardo Jenkins Jr. March 09, 2018 09:43
[2018-03-09] MEDS ORDERED: ceFAZolin INJ 1,000 MG VIAL ONE (10:37)
[2018-03-09] MEDS ORDERED: VANCOMYCIN HCL 1000 MG VIAL ONE (10:37)
[2018-03-09] MEDS ORDERED: GENTAMICIN SULFATE 80 MG/2 ML VIAL ONE (10:38)
[2018-03-09] MEDS ORDERED: HYDR-3580 PO (10:40)
[2018-03-09] MEDS ORDERED: WALKER/ADULT/FO1 MIS (10:40)
[2018-03-09] MEDS ORDERED: OXYC-395 PO (10:57)
--- NOTE | 2018-03-09 11:25 | PD.OP ---
cc: Juanito Quispe MD Operative Report Date of Surgery: March 09, 2018 Preoperative Diagnosis: Displaced right ankle trimalleolar fracture Postoperative Diagnosis: Procedure: Open reduction internal fixation right ankle fractures, open reduction fixation right ankle syndesmosis Anesthesia: General Surgeon: Juanito Quispe River Driver(s): GORAN Alvarez PA-C The surgical procedure was assisted by my physician corporate legal assistant. My P.A. presence was necessary throughout this case for the manipulation and positioning of the surgical extremity. My P.A. was assisting me throughout the duration of this procedure. The skill set of a physician corporate legal assistant was medically necessary to complete this procedure. During the surgical case the neurosurgical physician assistant was working at the back table and the physician corporate legal assistant was directly assisting me. Operation and Findings: Plan of activity : Nonweightbearing Implants used: WILMAR Taylor was seen and evaluated preoperatively and found to have a displaced right ankle fracture. Informed consent was obtained after a detailed discussion of risk and benefits of surgery. The operative site was marked. Patient was brought to the OR, placed on the OR table, and given IV sedation and general endotracheal anesthesia. IV antibiotics were given preoperatively. A timeout procedure was performed. The left leg was prepped with alcohol followed by Hibiclens and draped in the usual sterile fashion. Next attention was turned towards the medial malleolus. Fracture was visualized under fluoroscopy. The fracture reduced into excellent alignment with percutaneous technique. K wires were used to hold provisional fixation. 2 guidepins for the 4.0 cannulated screws were placed in a retrograde fashion across the fracture. Fluoroscopy was used to confirm guidepin placement. Cannulated drill was placed over the guidepin. 2 appropriate length screws were now placed. Good compression was applied. Fluoroscopy confirmed well aligned fracture with well-placed hardware. Next the posterior malleolus fragment was visualized under fluoroscopy. This was a small fragment with minimal articular surface. The fibula fracture is also visualized. The proximal fibular fracture was relatively well aligned. Next, attention was turned to the syndesmosis. The syndesmosis was stressed. There was clear widening of the syndesmosis with external rotation of the ankle. The syndesmosis was now held in a reduced position with the ankle in neutral position. Two 3.5 mm cortical screws were now placed through a 2 hole fibula plate into the tibia. Fluoroscopy confirmed appropriate screw placement with well-aligned syndesmosis. Incisions were thoroughly irrigated. The subcutaneous tissue was closed with 3-0 Vicryl and the skin was closed with 3-0 nylon. Sterile dressings were applied. A well molded well-padded splint was applied. The patient was transferred to Recovery in stable condition. Needle and sponge counts were correct. Juanito Quispe MD March 09, 2018 11:24
[2018-03-09] MEDS ORDERED: Post-op Orders (for Pharmacy) XX ONE (11:41)
[2018-03-09] MEDS ORDERED: DO NOT ADM ANY ANTICOAGULANT DRUGS PRN (11:46)
[2018-03-09 12:00] VITALS: BP 141/65; PULSE 68; RESP 18; TEMP 98.2; O2SAT 96
[2018-03-09 12:24] VITALS: BP 123/65; PULSE 76; RESP 16; TEMP 98.4; O2SAT 97
--- NOTE | 2018-03-09 14:39 | HHI.DCPOC ---
Discharge Care Plan Diagnosis: (1) Fall (2) Hepatitis C (3) Chronic pain syndrome (4) Right malleolar fracture (5) Fracture of right proximal fibula Goals to Promote Your Health * To prevent worsening of your condition and complications * To maintain your health at the optimal level Directions to Meet Your Goals Take your medications as prescribed Follow your dietary instruction Follow activity as directed Keep your appointments as scheduled Take your immunizations and boosters as scheduled If your symptoms worsen call your PCP, if no PCP go to Urgent Care Center or Emergency Room Smoking is Dangerous to Your Health. Avoid second hand smoke Call the 24-hour hour crisis hotline for domestic abuse at Chinedu Peguero MD March 09, 2018 14:39
--- NOTE | 2018-03-09 14:41 | HHI.DS ---
Discharge Summary Admission Date March 08, 2018 at 18:06 Discharge Date: March 09, 2018 Admitting Diagnosis Right proximal fibula fracture, right distal tibia fracture (1) Fracture of right proximal fibula ICD Code: S82.831A - Other fracture of upper and lower end of right fibula, initial encounter for closed fracture Status: Acute (2) Right malleolar fracture ICD Code: S82.891A - Other fracture of right lower leg, initial encounter for closed fracture Status: Acute (3) Hepatitis C ICD Code: B19.20 - Unspecified viral hepatitis C without hepatic coma Status: Chronic Brief History - From Admission PAtient states slipped and fell. CBC/BMP: 03/09/18 0511 03/09/18 0511 Significant Findings Laboratory Tests Test 03/08/18 17:30 03/09/18 05:11 White Blood Count 16.0 TH/MM3 (4.0-11.0) Neutrophils # (Auto) 11.0 TH/MM3 (1.8-7.7) Monocytes # (Auto) 1.1 TH/MM3 (0-0.9) Random Glucose 109 MG/DL (74-106) Estimat Glomerular Filtration Rate 69 ML/MIN (>89) 80 ML/MIN (>89) Monocytes (%) (Auto) 8.8 % (0.0-8.0) Albumin 3.0 GM/DL (3.4-5.0) Pt Condition on Discharge: Stable Discharge Disposition: Discharge Home Discharge Instructions DIET: Follow Instructions for: As Tolerated, No Restrictions Activities you can perform: Non Weight Bearing, See Additionl Instruction Other Activity Instructions: non weight bearing on right lower extremity. Use wheelchair and walker as instructed by PT. Chinedu Peguero MD March 09, 2018 14:41
[2018-03-09] MEDS ORDERED: WHEEMIS3 (15:56)
--- NOTE | 2018-03-09 16:16 | RADRPT ---
EXAM DATE/TIME: 03/09/2018 11:14 [place] COMPARISON: No previous studies available for comparison. INDICATIONS : Right ankle fracture. Distal fibula fracture. MEDICAL HISTORY : None. SURGICAL HISTORY : None. ENCOUNTER: Subsequent ACUITY: 2 days PAIN SCORE: Non-responsive. LOCATION: Right Ankle. FINDINGS: Abdominal alignment across the ankle fracture. Pins are seen bridging the medial malleolus. Cortica l lag screws are seen bridging the syndesmosis. CONCLUSION: Anatomic alignment. Dustin Richey MD FACR on March 09, 2018 at 16:13 Board Certified Radiologist. This report was verified electronically.
[2018-03-09] MEDS ORDERED: ceFAZolin 2 GM PREMIX 50 ML IV SCH (19:00)
--- NOTE | 2018-03-09 21:00 | EKG ---
Date Performed: 03/08/2018 Time Performed: 19:16:13 PTAGE: 47 years EKG: Sinus rhythm NORMAL ECG Since the PREVIOUS TRACING , no significant change noted PREVIOUS TRACIN04/24/2008 08.47 DOCTOR: Francoise Sanchez Interpretating Date/Time 03/09/2018 16:51:29
== END 2018-03-09 17:47 | disposition home or self-care (01) | DRG 494 ==
LOC: NEPK 14:36 → NEDA 18:06 → OBSVTOIN 18:06 → N06B 19:49
PROVIDERS: ADMIT Hospitalist; ATTEND Hospitalist
PROC: 0QSG0ZZ Reposition Right Tibia, Open Approach (ICD-10-PCS; 2018-03-09)
PROC: 0QSJ0ZZ Reposition Right Fibula, Open Approach (ICD-10-PCS; 2018-03-09)
PROC: 0SSF04Z Reposition Right Ankle Joint with Internal Fixation Device, Open Approach (ICD-10-PCS; 2018-03-09)
PROC: 0QSG04Z Reposition Right Tibia with Internal Fixation Device, Open Approach (ICD-10-PCS; principal; 2018-03-09 10:37)
DX: S82.851A Displaced trimalleolar fracture of right lower leg, initial encounter for closed fracture (principal); S82.831A Other fracture of upper and lower end of right fibula, initial encounter for closed fracture; W01.0XXA Fall on same level from slipping, tripping and stumbling without subsequent striking against object, initial encounter; Y93.9 Activity, unspecified; F17.210 Nicotine dependence, cigarettes, uncomplicated; Z85.41 Personal history of malignant neoplasm of cervix uteri; S93.431A Sprain of tibiofibular ligament of right ankle, initial encounter; B19.20 Unspecified viral hepatitis C without hepatic coma; E78.5 Hyperlipidemia, unspecified; G89.4 Chronic pain syndrome; Z90.710 Acquired absence of both cervix and uterus; Z98.1 Arthrodesis status
CPT/HCPCS: 71045; 73590; 73600; 73610; 73630; 76000; 80048; 80053; 85025; 85610; 85730; 93005; 94150; C1713; J0690; J1580; J1644; J3010; J3370

== ENCOUNTER → 2018-04-26 | Outpatient (CLI) | payer MEDICAID ==
[~2018-04-26] MED LIST changes: -AUGM875T3 PO; -FLUT50SP EACH NARE; -HYDR-3580 PO; +OXYC-395 PO; -WALKER WHEELS/F1 MIS; +WALKER/ADULT/FO1 MIS; +WHEEMIS3
== END ==
LOC: HORT 17:06
PROVIDERS: ATTEND Orthopaedic Surgery Orthopaedic Trauma
DX: S82.851A Displaced trimalleolar fracture of right lower leg, initial encounter for closed fracture (principal); X58.XXXA Exposure to other specified factors, initial encounter
CPT/HCPCS: L2114